=== PATIENT | male | born 1940 | race Hispanic/Latino ===

== ENCOUNTER 2019-03-14 09:56 | Outpatient (CLI) | payer MEDICARE, OTHER ==
--- NOTE | 2019-03-17 08:55 | Cat Scan Report ---
PROCEDURE: CT ABDOMEN PELVIS WO CON TECHNIQUE: CT imaging is obtained through the abdomen and pelvis without intravenous contrast. Posit miki enteric contrast was ingested prior to the exam. HISTORY: MALIGNANT NEOPLASM OF PROSTATE COMPARISONS: None FINDINGS: Imaged intrathoracic contents are remarkable for sequela of emphysema. Kidneys are normal in size, axis and position. Nonobstructive left renal stones versus renal vascular calcifications measuring up to 11 mm. No hydroureteronephrosis. No stones are seen within the urinar y bladder. Prior prostatectomy. Surgical clips in the pelvis. The liver, gallbladder, pancreas, spleen, and adrenal glands demonstrate an unremarkable noncontrast appearance. Hollow enteric organs are normal in course and caliber. Positive enteric contrast is seen as far dist ally as the cecum. Extensive sigmoid diverticulosis without surrounding inflammatory findings. No lina endicitis. No intra-abdominal free air/fluid or lymphadenopathy. Aorta is normal in course and caliber. Superficial soft tissues are remarkable for anterior midline surgical scarring. No acute or aggressiv e appearing skeletal findings identified. IMPRESSION: No findings of metastatic disease in the abdomen or pelvis identified within limits of this noncontra st exam. If there is concern for skeletal metastases, consider nuclear medicine bone scan or PET CT for more s ensitive evaluation. This document is electronically signed by Lake Saba MD., March 17 2019 09:53:30 AM ET
== END 2019-03-14 09:57 | disposition home or self-care (01) ==
LOC: CT 09:56
PROVIDERS: ATTEND Urology
DX: K57.30 Diverticulosis of large intestine without perforation or abscess without bleeding (principal); C61 Malignant neoplasm of prostate; N39.0 Urinary tract infection, site not specified
CPT/HCPCS: 74176